=== PATIENT | male | born 1995 | race Caucasian/White ===

== ENCOUNTER 2018-05-31 18:58 | Emergency (ER) | payer MEDICAID ==
[~2018-05-31] VITALS: Ht 177.8 cm; Wt 122.9 kg
[2018-05-31 19:01] VITALS: BP 136/75
--- NOTE | 2018-05-31 19:03 | NUR ---
PT SENT TO LOBBY TO WAIT FOR AVAILABLE BED.
--- NOTE | 2018-05-31 20:16 | NUR ---
PATIENT AMBULATED TO ER BED 2.
--- NOTE | 2018-05-31 20:24 | NUR ---
22 YO M BIB SELF PRESENTS TO THE ED C/O COUGH AND WHEEZING X 4 DAYS. PT STATES HE WAS SEEN AT [facility] FOR BRONCHITIS AND RECEIVED PREDNISONE, ALBUTEROL INH, AND MUCINEX. PT STATES THEY HAVE NOT BEEN HELPING HIS S/SX. PT ALSO REPORTS THAT HE HAS INTERMITTENT DIZZY SPELLS. -- BREATHING IS EVEN UNLABORED. SP02: 93% ON RA. INSPIRATORY WHEEZING HEARD TO LEFT UPPER LOBE. COUGH PRESENT. PT IS SLIGHTLY TACHYCARDIC: 105. -- DENIES PAIN, BUT REPORTS DISCOMFORT WHILE BREATHING. PT IS CALM, COOPERATIVE, BEHAVIOR APPROPRIATE. SKIN IS PINK, WARM, DRY. -- PMH: DENIES HOB ELEVATED. PT POSITIONED FOR COMFORT. SIDE RAIL UP X1. BED IN LOWEST POSITION. WILL CONTINUE TO MONITOR.
--- NOTE | 2018-05-31 20:30 | NUR ---
PT TAKEN TO XRAY.
[2018-05-31] MEDS ORDERED: predniSONE 20 MG TAB PO ONE (21:35)
[2018-05-31] MEDS ORDERED: IPRATROPIUM 0.02% 0.5 MG/2.5 ML NEBU INH ONE (21:35)
[2018-05-31] MEDS ORDERED: ALBUTEROL 0.083% 2.5 MG/3 ML NEBU INH ONE (21:35)
--- NOTE | 2018-05-31 21:50 | NUR ---
RT AT BEDSIDE.
--- NOTE | 2018-05-31 22:04 | NUR ---
BREATHING TX IN PROGRESS. SP02: 97%
[2018-05-31] MEDS ORDERED: NACL 0.9% 1,000 ML IV ONE (22:35)
[2018-05-31 23:37] LABS: BASOPHILS # (AUTO) 0.1 K/uL (0.00-0.22); EOSINOPHILS % (AUTO) 0.1 % (0.0-4.0); HEMATOCRIT 45.8 % (36-52); HEMOGLOBIN 15.5 g/dL (12.0-18.0); LYMPHOCYTES # (AUTO) 1.8 K/uL (2.0-11.5); LYMPHOCYTES % (AUTO) 32.1 % (20.5-51.1); MEAN CORPUSCULAR HEMOGLOBIN 30 pg (27-31); MEAN CORPUSCULAR HGB CONC 34 g/dL (33-37); MEAN CORPUSCULAR VOLUME 87.2 fL (80-94); MONOCYTES # (AUTO) 0.8 K/uL (0.8-1.0); NEUTROPHILS % (AUTO) 52.8 % (42.2-75.2); PLATELET COUNT (AUTO) 304 K/uL (140-450); RED BLOOD CELL COUNT(AUTO) 5.25 MIL/uL (4.20-6.10); WHITE BLOOD COUNT (AUTO) 5.7 K/uL (4.8-10.8)
[2018-05-31 23:57] LABS: ALBUMIN 3.7 g/dL (3.4-5.0); ANION GAP 16.6 (8-16); CARBON DIOXIDE 24.8 mmol/L (21-32); POTASSIUM 3.4 mmol/L (3.5-5.1); TOTAL BILIRUBIN 0.4 mg/dL (0.0-1.0)
--- NOTE | 2018-06-01 00:50 | NUR ---
PERFORMED AMBULATORY O2 SAT, 89%. ER NOTIFIED.
--- NOTE | 2018-06-01 01:40 | NUR ---
PERFORMED AMBULATORY. O2 SAT: 93%, HR: 117. PT DENIES SOB, DIZZINESS, INCREASED WOB. ER MD NOTIFIED.
[2018-06-01 02:07] VITALS: BP 131/75
--- NOTE | 2018-06-01 02:07 | NUR ---
Patient discharged with v/s stable. Written and verbal after care instructions given and explained. Patient alert, oriented and verbalized understanding of instructions. Ambulatory with steady gait. All questions addressed prior to discharge. ID band removed. Patient advised to follow up with PMD. Rx of Albuterol, Prednisone, and Doxycycline given. Patient educated on indication of medication including possible reaction and side effects. Opportunity to ask questions provided and answered.
== END 2018-06-01 02:07 | disposition home or self-care (01) ==
LOC: MED 18:58
DX: J45.909 Unspecified asthma, uncomplicated (principal)
CPT/HCPCS: 36415; 36600; 71046; 80053; 82803; 85025; 94640; 99284; J7030; J7512; J7613; J7644; 94644